=== PATIENT | male | born 1995 | race African-American/Black ===

== ENCOUNTER 2020-08-06 03:27 | Emergency (ER) | payer OTHER ==
[~2020-08-06] VITALS: Ht 172.7 cm; Wt 78.5 kg
[~2020-08-06 03:27] MED LIST: AZITHROMYCIN 2250 MG PO; FLOVENT HFA 4444 MCG INH; MEDROLDOSEPACK PO
[2020-08-06 03:35] VITALS: BP 129/77
== END 2020-08-06 04:12 | disposition home or self-care (01) ==
LOC: ER 03:27
DX: Z00.00 Encounter for general adult medical examination without abnormal findings (principal); J45.909 Unspecified asthma, uncomplicated; Z79.2 Long term (current) use of antibiotics; Z79.899 Other long term (current) drug therapy; Z88.0 Allergy status to penicillin; Z91.09 Other allergy status, other than to drugs and biological substances